=== PATIENT | female | born 1945 | race Caucasian/White ===

== ENCOUNTER → 2017-01-20 | Outpatient (CLI) | payer MEDICARE, BC ==
--- NOTE | 2017-01-20 16:51 | REP ---
MAXILLOFACIAL CT WITHOUT CONTRAST: HISTORY: Headache. COMPARISON: 01/30/2010. The frontal sinuses are hypoplastic. Minimal mucosal thickening is present in the right ethmoid and maxillary sinuses. The remaining sinuses are clear. The osteomeatal unit are patent. The middle and inferior nasal turbinates are partially paradoxical. The nasal septum is midline. The cribriform plate, medial warren of the orbits and optica canals are intact. There is aeration of the right anterior clinoid process. The carotid canals form a segment of the posterolateral warren of the sphenoid sinus. The sphenoid sinus septa inserts into the internal carotid canal warren. IMPRESSION: Sinus mucosal thickening as described above. Signed by Kole Rocha MD 01/20/2017 04:56 P
== END ==
LOC: M RAD 14:26
PROVIDERS: ATTEND Specialist
DX: R51 Headache (principal)

== ENCOUNTER → 2017-04-06 | Outpatient (REF) | payer MEDICARE, BC | LOC: M LAB REF 15:10 | PROVIDERS: ATTEND Nurse Practitioner Family | DX: R19.7 Diarrhea, unspecified (principal) ==

== ENCOUNTER → 2017-05-26 | Outpatient (REF) | payer MEDICARE, BC | LOC: M LAB REF 12:36 | PROVIDERS: ATTEND Internal Medicine | DX: L63.0 Alopecia (capitis) totalis (principal) ==

== ENCOUNTER → 2018-03-30 | Outpatient (REF) | payer MEDICARE, BC | LOC: M LAB REF 08:35 | DX: D22.71 Melanocytic nevi of right lower limb, including hip (principal) | CPT/HCPCS: 88304 ==

== ENCOUNTER 2018-04-01 06:26 | Day surgery (SDC) | payer MEDICARE, BC ==
[2018-04-01] MEDS: OFLOXACIN 0.3 % (OCUFLOX) OPTH SOL 5ML OD (07:30)
[2018-04-01] MEDS: PHENYLEPHRINE 2.5% OPHTH SOL 2ML OD (07:30)
[2018-04-01] MEDS: TROPICAMIDE 1% OPHTH SOLN 2ML OD (07:30)
[2018-04-01] MEDS: PROPARACAINE 0.5% OPHTH SOL 15ML OD (07:30)
[2018-04-01] MEDS ORDERED: MIDAZOLAM INJ 2 MG/2 ML VIAL (J2250) As Ordered (08:50)
[2018-04-01] MEDS ORDERED: fentaNYL 100 MCG/2 ML INJECTION (J3010) As Ordered (08:50)
[2018-04-01] MEDS: POVIDONE-IODINE 5% OPHTH PREP SOL 30ML As Ordered (09:30)
[2018-04-01] MEDS: BALANCED SALT IRRIGATION SOLUTION 500ML BAG (FOR OR EYE MACHINE) As Ordered (09:30)
[2018-04-01] MEDS: DUOVISC (0.50ML VISCOAT/0.55ML PROVISC) OPHTH KIT As Ordered (09:30)
[2018-04-01] MEDS: LIDOCAINE 0.75%/EPINEPHRINE 0.025% IN BSS 1ML SYR INTRACAMERAL (OR ONLY) As Ordered (09:30)
[2018-04-01] MEDS: CEFUROXIME 1MG/0.1ML INTRACAMERAL INJ As Ordered (09:30)
== END 2018-04-01 10:16 | disposition home or self-care (01) ==
LOC: M SDC 06:26
DX: H25.11 Age-related nuclear cataract, right eye (principal); K58.8 Other irritable bowel syndrome; Z79.899 Other long term (current) drug therapy; Z88.1 Allergy status to other antibiotic agents
CPT/HCPCS: 66984

== ENCOUNTER 2019-05-11 06:57 | Day surgery (SDC) | payer MEDICARE, BC ==
[~2019-05-11] VITALS: Ht 160 cm; Wt 63.0 kg
[~2019-05-11 06:57] MED LIST: ALL10TAB29 PO; ALOE170G OR; ALOE25CA4 PO; ASPI81TA85 PO; CALC600T60 PO; CALCTAB89 PO; CHOL100029 PO; CLOB5CR TOP; ESTR62CR PV; HM M250T PO; MAGN250T7 PO; NS 1,000 ML IV ONE; PRAV20TA2 PO; PROB1TAB2 PO; SM HTAB3 PO; SUPECAP24 PO; SUPETAB44 PO; TRIA37.53 PO; TURMCAP PO; VITA-183 PO
[2019-05-11] MEDS ORDERED: LIDOCAINE 2% INJ 100 MG/5 ML SDV (FOR ANES.) As Ordered ONE (07:16)
[2019-05-11] MEDS ORDERED: PROPOFOL 200 MG/20 ML VIAL As Ordered ONE (07:16)
--- NOTE | 2019-05-11 08:21 | ROOR ---
Patient Name: Flaca Schultz Procedure Date: 05/11/2019 7:55 AM Date of : 1945 Age: 73 Room: [facility] Gender: Female Note Status: Finalized Procedure: Total Colonoscopy to Cecum Indications: Colon cancer screening in patient at increased risk: Colorectal cancer in brother Providers: Bennie Stanford MD Referring MD: Allie JONES MD Requesting Provider: Medicines: Monitored Anesthesia Care Complications: No immediate complications. Procedure: Pre-Anesthesia Assessment: - The heart rate, respiratory rate, oxygen saturations, blood pressure, adequacy of pulmonary ventilation, and response to care were monitored throughout the procedure. The Colonoscope was introduced through the anus and advanced to the cecum, identified by appendiceal orifice and ileocecal valve. The colonoscopy was performed without difficulty. The patient tolerated the procedure well. The quality of the bowel preparation was excellent. Findings: The perianal and digital rectal examinations were normal. Non-bleeding internal hemorrhoids were found during retroflexion. The hemorrhoids were small and Grade I (internal hemorrhoids that do not prolapse). Multiple small and large-mouthed diverticula were found in the recto-sigmoid colon, sigmoid colon and descending colon. No other significant abnormalities were identified in a careful examination of the remainder of the colon. The exam was otherwise without abnormality on direct and retroflexion views. Impression: - Non-bleeding internal hemorrhoids. - Diverticulosis in the recto-sigmoid colon, in the sigmoid colon and in the descending colon. - The examination was otherwise normal on direct and retroflexion views. - No specimens collected. - The exam was otherwise normal to the cecum. Recommendation: - Patient has a contact number available for emergencies. The signs and symptoms of potential delayed complications were discussed with the patient. Return to normal activities tomorrow. Written discharge instructions were provided to the patient. - High fiber diet. - Discharge patient to home. - Continue present medications. - Repeat colonoscopy for symptoms only. - Return to referring physician. - The findings and recommendations were discussed with the patient's family. Bennie Stanford MD Bennie Stanford MD 05/11/2019 8:20:58 AM Electronically signed by Bennie Stanford MD Number of Addenda: 0 Note Initiated On: 05/11/2019 7:55 AM Estimated Blood Loss: Estimated blood loss: none.
[2019-05-11 08:50] VITALS: BP 162/74
== END 2019-05-11 08:59 | disposition home or self-care (01) ==
LOC: M OPP 06:57
PROVIDERS: ATTEND Internal Medicine Gastroenterology
DX: Z12.11 Encounter for screening for malignant neoplasm of colon (principal); Z80.0 Family history of malignant neoplasm of digestive organs; K64.0 First degree hemorrhoids; K57.30 Diverticulosis of large intestine without perforation or abscess without bleeding; I10 Essential (primary) hypertension; E78.5 Hyperlipidemia, unspecified; Z87.19 Personal history of other diseases of the digestive system; K44.9 Diaphragmatic hernia without obstruction or gangrene; K58.9 Irritable bowel syndrome, unspecified; K21.9 Gastro-esophageal reflux disease without esophagitis; Z86.19 Personal history of other infectious and parasitic diseases; Z85.828 Personal history of other malignant neoplasm of skin; Z78.0 Asymptomatic menopausal state; R06.83 Snoring; Z88.1 Allergy status to other antibiotic agents; Z88.8 Allergy status to other drugs, medicaments and biological substances; Z79.82 Long term (current) use of aspirin; Z79.899 Other long term (current) drug therapy

== ENCOUNTER → 2019-06-22 | Outpatient (REF) | payer MEDICARE, BC ==
[~2019-06-22] MED LIST changes: -NS 1,000 ML IV ONE
[2019-06-22 16:13] LABS: BASO % 0.4 % (0.0-1.0); EOS # 0.1 10^3/uL (0.0-0.5); EOS % 1.2 % (0.0-3.0); HEMATOCRIT 44.7 % (36.0-47.0); HEMOGLOBIN 13.9 g/dl (12.0-15.5); LYMPH # 2.3 10^3/uL (1.5-5.0); LYMPH % 25.4 % (24.0-44.0); MEAN CORPUSCULAR HEMOGLOBIN 27.7 pg (27.0-33.0); MEAN CORPUSCULAR HGB CONC 31.1 g/dl (32.0-36.5); MEAN CORPUSCULAR VOLUME 89.2 fl (80.0-96.0); MONO # 0.9 10^3/uL (0.0-0.8); MONO % 9.6 % (0.0-5.0); NEUTROPHILS # 5.7 10^3/uL (1.5-8.5); NEUTROPHILS % 63.2 % (36.0-66.0); PLATELET COUNT, AUTOMATED 310 10^3/uL (150-450); RED BLOOD COUNT 5.01 10^6/uL (4.00-5.40)
[2019-06-22 16:24] LABS: ALBUMIN 4.1 GM/DL (3.2-5.2); BILIRUBIN,DIRECT 0.1 MG/DL (0.0-0.2); BILIRUBIN,TOTAL 0.5 MG/DL (0.2-1.0); CALCIUM LEVEL 9.2 MG/DL (8.8-10.2); CREATININE FOR GFR 1.05 MG/DL (0.55-1.30); GLOMERULAR FILTRATION RATE 54.7 (>39); PHOSPHORUS LEVEL 2.6 MG/DL (2.5-4.9); POTASSIUM SERUM 3.7 MEQ/L (3.5-5.1); TOTAL PROTEIN 7.5 GM/DL (6.4-8.2)
== END ==
LOC: M LABDRAW1 15:53
PROVIDERS: ATTEND Nurse Practitioner Family
DX: L66.1 Lichen planopilaris (principal); Z51.81 Encounter for therapeutic drug level monitoring; Z79.899 Other long term (current) drug therapy

== ENCOUNTER → 2019-10-18 | Outpatient (CLI) | payer MEDICARE, BC ==
[2019-10-18 16:33] LABS: THYROID STIMULATING HORMONE 2.39 uIU/ML (0.358-3.740); THYROXINE (T4) 9.7 UG/DL (4.5-12.0)
[2019-10-18 16:35] LABS: FOLLICLE STIMULATING HORMONE 65.8 mIU/mL; LUTEINIZING HORMONE 46.5 mIU/mL
[2019-10-20 14:07] LABS: DEHYDROEPIANDROSTERONE SULFATE 56.8 ug/dL (20.4-186.6); TESTOSTERONE FREE (DIRECT) 2.2 pg/mL (0.0-4.2)
== END ==
LOC: M WUC 12:19
PROVIDERS: ATTEND Nurse Practitioner Family
DX: L66.8 Other cicatricial alopecia (principal)

== ENCOUNTER 2023-09-01 08:50 | Day surgery (SDC) | payer MEDICARE, BC ==
[~2023-09-01] VITALS: Ht 160 cm; Wt 70.1 kg
[~2023-09-01 08:50] MED LIST changes: -ALL10TAB29 PO; +AMLO2.5T3 PO; -ASPI81TA85 PO; +ASPI81TA86 PO; +BAYE81TA7 PO; +CETI-24 PO; +COQ150CH PO; +DOXY100C3 PO; +FINA1TAB12 PO; +MAGN400C PO; +NS 1,000 ML IV ONE; -TRIA37.53 PO; +TRIA37.577 PO; +TURM500C PO; +VALS1TAB66 PO; +VITA200020 PO
[2023-09-01] MEDS ORDERED: propofoL 200 MG/20 ML VIAL As Ordered ONE ×3 (10:17→10:33)
[2023-09-01] MEDS ORDERED: PHENYLephrine 500MCG 5ML (100MCG/ML) SYRINGE As Ordered ONE (10:38)
[2023-09-01 10:57] VITALS: TEMP 97.4
[2023-09-01 11:15] VITALS: BP 160/74; O2SAT 99
== END 2023-09-01 11:25 | disposition home or self-care (01) ==
LOC: M OPP 08:50
PROVIDERS: ATTEND Internal Medicine Gastroenterology
DX: Z12.11 Encounter for screening for malignant neoplasm of colon (principal); Z86.010 Personal history of colon polyps; Z80.0 Family history of malignant neoplasm of digestive organs; D12.6 Benign neoplasm of colon, unspecified; K57.30 Diverticulosis of large intestine without perforation or abscess without bleeding; K64.4 Residual hemorrhoidal skin tags; K64.8 Other hemorrhoids; Z88.1 Allergy status to other antibiotic agents; Z79.02 Long term (current) use of antithrombotics/antiplatelets; Z79.2 Long term (current) use of antibiotics; Z79.82 Long term (current) use of aspirin; Z79.899 Other long term (current) drug therapy
CPT/HCPCS: 45385; 88305; J2371

== ENCOUNTER → 2023-09-24 | Outpatient (REF) | payer MEDICARE, BC ==
[~2023-09-24] MED LIST changes: -NS 1,000 ML IV ONE
== END ==
LOC: M LAB REF 18:26
PROVIDERS: ATTEND Internal Medicine
DX: R53.83 Other fatigue (principal); M54.15 Radiculopathy, thoracolumbar region

== ENCOUNTER → 2023-09-30 | Outpatient (CLI) | payer MEDICARE, BC | LOC: M RAD 12:08 | PROVIDERS: ATTEND Internal Medicine | DX: G45.3 Amaurosis fugax (principal) ==

== ENCOUNTER → 2023-10-12 | Outpatient (CLI) | payer MEDICARE, BC | LOC: M PLAIMG 09:24 | PROVIDERS: ATTEND Internal Medicine | DX: G45.3 Amaurosis fugax (principal) ==

== ENCOUNTER → 2023-10-23 | Outpatient (CLI) | payer MEDICARE, BC | LOC: M PLARAD 10:43 | PROVIDERS: ATTEND Internal Medicine | DX: G45.3 Amaurosis fugax (principal) ==

== ENCOUNTER → 2023-12-30 | Outpatient (REF) | payer MEDICARE, BC ==
[~2023-12-30] MED LIST changes: -FINA1TAB12 PO; +FINA1TAB4 PO
== END ==
LOC: M LAB REF 16:24
PROVIDERS: ATTEND Internal Medicine
DX: M54.15 Radiculopathy, thoracolumbar region (principal)